=== PATIENT | female | born 1995 | race Caucasian/White ===

== ENCOUNTER 2016-12-15 10:07 | Inpatient (IN) | payer OTHER, SELFPAY ==
[~2016-12-15] VITALS: Ht 160 cm; Wt 105.1 kg
[2016-12-15 10:33] LABS: BASO # 0.1 K/mm3 (0.0-0.2); BASO % 0.6 % (0.0-1.0); EOS # 0.1 K/mm3 (0.0-0.50); EOS % 1.2 % (0.0-3.0); LARGE UNSTAINED CELL # 0.1 K/mm3 (0.0-0.4); LARGE UNSTAINED CELL % 1.4 % (0.0-4.0); LYMPH # 2.5 K/mm3 (1.5-6.5); LYMPH % 23.9 % (24.0-44.0); MEAN CORPUSCULAR HEMOGLOBIN 31.7 pg (27.0-33.0); MEAN CORPUSCULAR HGB CONC 35.3 g/dl (32.0-36.5); MEAN CORPUSCULAR VOLUME 89.6 fl (80.0-96.0); MONO # 0.4 K/mm3 (0.0-0.8); MONO % 3.6 % (0.0-5.0); NEUTROPHILS # 7.2 K/mm3 (1.8-7.7); NEUTROPHILS % 69.3 % (36.0-66.0); PLATELET COUNT, AUTOMATED 391 k/mm3 (150-450); RED CELL DISTRIBUTION WIDTH 12.6 % (11.5-14.5); WHITE BLOOD COUNT 10.4 K/mm3 (4.0-10.0)
[2016-12-15] MEDS ORDERED: CHARCOAL ACTIVATED LIQUID 25 GM/120 ML BTL PO ONE (10:45)
[2016-12-15 10:49] LABS: CONTROL LINE HCG INT CTR LINE PRESENT
[2016-12-15 11:06] LABS: ALBUMIN 4.3 GM/DL (3.2-5.2); ALBUMIN/GLOBULIN RATIO 1.26 (1.00-1.93); ALKALINE PHOSPHATASE 86 U/L (45-117); ALT/SGPT 41 U/L (12-78); ANION GAP 9 MEQ/L (8-16); AST/SGOT 17 U/L (15-37); BILIRUBIN,DIRECT 0.2 MG/DL (0.0-0.2); BILIRUBIN,TOTAL 0.8 MG/DL (0.2-1.0); BLOOD UREA NITROGEN 12 MG/DL (7-18); CALCIUM LEVEL 8.9 MG/DL (8.5-10.1); CARBON DIOXIDE LEVEL 23 MEQ/L (21-32); CHLORIDE LEVEL 108 MEQ/L (98-107); CREATININE FOR GFR 0.97 MG/DL (0.55-1.02); GLOMERULAR FILTRATION RATE > 60.0 (>60); GLUCOSE, FASTING 104 MG/DL (70-105); POTASSIUM SERUM 4.2 MEQ/L (3.5-5.1); SODIUM LEVEL 140 MEQ/L (136-145); TOTAL PROTEIN 7.7 GM/DL (6.4-8.2)
[2016-12-15 13:10] LABS: METHADONE URINE NEGATIVE (NEGATIVE)
--- NOTE | 2016-12-15 16:11 | ECGEPIP ---
Stationary ECG Study [facility] - ED Test Date: 2016-12-15 Pat Name: ESPERANZA JACKSON Department: Room: - Gender: F .Net Architect: ct : 1995 Requested By: Julius Severino Order Number: [id number] Reading MD: Julius Cadet Measurements Intervals [place] Rate: 76 P: 60 RI: 153 QRS: 64 QRSD: 99 T: 40 QT: 349 QTc: 393 Interpretive Statements SINUS RHYTHM WITH MARKED SINUS ARRHYTHMIA Electronically Signed On 12-15-2016 16:10:43 EDT by Julius Cadet
[2016-12-15 18:15] VITALS: BP 140/83
[2016-12-15] MEDS ORDERED: MOM 30ML SUSPENSION UDC PO PRN (19:15)
[2016-12-15] MEDS ORDERED: ACETAMINOPHEN TAB 650MG DOSE (2X325MG) PO PRN (19:15)
[2016-12-15] MEDS ORDERED: MAALOX 30 ML SUSP *UDC PO PRN (19:15)
[2016-12-15] MEDS: traZODone 50 MG TAB PO PRN (21:47)
[2016-12-16 07:06] VITALS: BP 136/76
[2016-12-16] MEDS: MUPIROCIN 2% OINT 22 GM TUBE TOP SCH ×2 (09:00→21:00)
--- NOTE | 2016-12-16 11:46 | HPEPDOC ---
Medical History and Physical Date of Admission Dec 15, 2016 at 17:05 History and Physical PCP: None ATTENDING: Dr. Lawson Lowe HPI: 21yoF admitted to [facility] for unspecified depressive disorder, being medically examined today. Patient was medically stabilized in the emergency department after reporting taking 5, 5 mg melatonin tablets and 10 DayQuil max tablets. She was given activated charcoal, poison control was consulted. Patient was noted to have superficial lacerations to the left forearm. Old lacerations noted bilateral inner upper thighs. No acute medical complaints today. Denies any fevers, chills, weakness, fatigue, AVILEZ, CP, SOB, cough, palpitations, abdominal pain, N/V/D or changes in bowel or bladder habits. PMHx: Anxiety Depression Self-mutilation History of SI Endometriosis PCOS Obesity, BMI 41.0 PSHX: Exploratory laparotomy 05/17 secondary to infertility. Medical hernia repair 10/15 SOCHX: Resides in: [facility] Marital Status: Kids: None Employment: Works as a piercing hvac controls technician Tobacco use: 5-10 per day ETOH: Once per month one drink Illicit Drugs: History of cocaine, mary 2016 IV Drug Use: Denies Tattoos done unprofessionally: 7 FAMHX: Mother: , breast cancer Father: Estranged, substance use Siblings: Alive, ODD, depression, anxiety, bipolar disorder Children: None Unexpected deaths due to medical reasons: None. ROS: As noted in HPI, otherwise 11pt ROS of systems reviewed and remarkable only for LMP unknown PE: GEN: 21 yo F, appears stated age. Well-nourished, well developed. No acute distress. Alert and oriented x 3. Pleasant, interactive. HEENT: Normocephalic, atraumatic. Pupils are equal, round, and reactive to light. Extraocular movements are intact. No nystagmus appreciated. Sclera are nonicteric. Conjunctiva without injection. Nose midline. Nasal turbinates without bogginess. EACs both patent BL. TMs both visualized and lassiter with good cone of light, no bulging or erythema. No facial asymmetry. Moist mucous membranes. Dentition fair. Pharynx pink and moist, no cobblestoning. Neck supple , trachea midline. No lymphadenopathy or thyromegaly appreciated. CHEST: Regular rate and rhythm, +S1, +S2 LUNGS: Clear to auscultation bilaterally. No wheezes, rales, or rhonchi. Breathing appears symmetric and easy. Patient is speaking in full sentences. No accessory muscle use. ABD: Round, soft, non-tender, non-distended. +Bowel sounds throughout. No rebound or guarding. No costovertebral angle tenderness. EXT: Pulses 2+ bilaterally dorsalis pedis and radial. No lower extremity edema appreciated. SKIN: [place], dry, warm. Capillary refill <2sec. No rashes. Superficial lacerations noted bilateral upper thighs, forearms. No drainage. Minimal erythema. NEURO: Alert and oriented x 3. Cranial nerves III-XII are intact. No focal deficits appreciated. EK12/15/16 SINUS RHYTHM WITH MARKED SINUS ARRHYTHMIA A&P: 21yoF admitted to [facility] for unspecified depressive disorder 1. Psych. Plan per Psychiatry. EKG on file. 2. Nicotine dependence. Patch available. 3. Leukocytosis. Possible stress response. Patient is afebrile. Asymptomatic. Recheck CBC. 4. Follow up. No Primary Care Provider. Will attempt to establish PCP on discharge. 5. Substance use. Per psychiatry. 6. History of tattoo done unprofessionally. Patient agrees to HIV/hepatitis screening. 7. Abnormal TSH. Obtain thyroid profile. 8. Superficial lacerations. Apply Bactroban twice a day. Apply dry dressing twice a day as needed. 9. Staff member Sammie AHUMADA present throughout exam. Vital Signs Vital Signs Date Time Temp Pulse Resp B/P (MAP) Pulse Ox O2 Delivery O2 Flow Rate FiO2 12/16/16 07:06 98.4 110 16 136/76 (96) 12/15/16 17:14 96 12/15/16 14:54 Room Air Laboratory Data Labs 24H Laboratory Tests 2 12/15/16 11:46: Urine Amphetamines Screen NEGATIVE, Urine Benzodiazepines Screen NEGATIVE, Urine Opiates Screen NEGATIVE, Urine Methadone Screen NEGATIVE, Urine Barbiturates Screen NEGATIVE, Urine Phencyclidine Screen NEGATIVE, Urine Cocaine Metabolite Screen NEGATIVE, Urine Cannabinoids Screen NEGATIVE 12/15/16 14:23: Salicylates Level < 1.7L, Acetaminophen Level 4.7L Home Medications No Active Prescriptions or Reported Meds Allergies Coded Allergies: Latex (Verified Allergy, Mild, rash, 12/15/16) Dorcas Santiago Dec 16, 2016 11:46
[2016-12-16] MEDS: VENLAFAXINE **XR** 75MG CAPSULE PO SCH (11:47)
[2016-12-16 18:00] VITALS: BP 143/89
[2016-12-16] MEDS: traZODone 50 MG TAB PO PRN (21:32)
[2016-12-17 07:14] VITALS: BP 141/86
[2016-12-17 08:02] LABS: MEAN CORPUSCULAR HEMOGLOBIN 31.1 pg (27.0-33.0); MEAN CORPUSCULAR HGB CONC 34.6 g/dl (32.0-36.5); MEAN CORPUSCULAR VOLUME 89.9 fl (80.0-96.0); RED CELL DISTRIBUTION WIDTH 12.4 % (11.5-14.5); WHITE BLOOD COUNT 6.2 K/mm3 (4.0-10.0)
[2016-12-17 08:31] LABS: T UPTAKE 32 % (30-39); THYROXINE (T4) 10.9 UG/DL (4.5-12.0)
[2016-12-17] MEDS: VENLAFAXINE **XR** 75MG CAPSULE PO SCH (08:47)
[2016-12-17] MEDS: MUPIROCIN 2% OINT 22 GM TUBE TOP SCH ×2 (08:49→21:00)
[2016-12-17] MEDS: LORazepam 1 MG TAB PO PRN (11:23)
--- NOTE | 2016-12-17 13:21 | MHHPE ---
DATE OF ADMISSION: 12/15/2016 CURRENT MEDICATIONS: None. CHIEF COMPLAINT: The patient took an overdose of melatonin tablets and DayQuil tablets. She was also cutting her left arm. After taking the overdose, she realized she did not want to so she called for help. HISTORY OF PRESENT ILLNESS: This is a 21-year-old white female, , living by herself. The patient woke up yesterday with suicidal ideation with plans to end her life. She took the overdose as mentioned above and then had second thoughts. She was brought in by the police department to the emergency room. The patient's stressors recently have been financial. Her boyfriend just broke up with her three days ago. She admits that she has a bad temper with rage attacks. She pushes people away. She starts big fights and gets mean and abusive. The patient blames herself for the ending of the relationship. Recently, she states her appetite is poor, but her weight is stable. Her concentration fluctuates. Self esteem is quite poor. Level of energy is low. Sleep patterns are poor. She has history of depression dating back to age 13 when her mother of cancer. The patient has history of cutting herself on and off ever since. She also has a history of panic attacks which she gets periodically. The patient is not in current mental health treatment. The patient is isolated here in [place] and has no friends or family. The patient works in a [employer]. PAST PSYCHIATRIC HISTORY: The patient was hospitalized December 2013 in [place]. She took an overdose of Prozac and BuSpar. She was given Effexor unknown dosage. She had no side effects on it, but the dose was never increased and it did not seem to be very effective so it was eventually discontinued. The patient was given Prozac as a teenager, also with an adverse outcome where she became depressed and suicidal on it. She has never been on Paxil, Zoloft, Celexa, Lexapro or Wellbutrin. MEDICAL HISTORY: Polycystic ovary syndrome. ALLERGIES TO MEDICATIONS: - PROZAC LEGAL HISTORY: The patient denies. CHEMICAL DEPENDENCY: The patient denies. FAMILY PSYCHIATRIC HISTORY: The patient states that her father is a methamphetamine addict. Her brother has been diagnosed with oppositional defiant disorder. Another brother has been diagnosed with attention deficit hyperactivity disorder (ADHD) and possibly bipolar. Her sister has been diagnosed with depression. SOCIAL HISTORY: The patient born and raised in [place]. After her mother of cancer, her father brought her and the family to [place]. The patient is a high school graduate. 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 The relationship with her three siblings is poor. Her father is a meth addict as mentioned above. The patient got to an [employer] soldier, but the patient just recently got from that relationship. Her recent boyfriend also has been in the [employer]. She came up here to [place] to be with him, arriving in February 2016. She has no other social supports here in this area. MENTAL STATUS EXAMINATION: The patient is alert, oriented and cooperative. Affect is sad. Mood is moderately depressed. She is obese. Self esteem is poor. She is not hearing voices. No paranoia or thought disorder. She has had recent suicidal ideation. She is not homicidal. Insight and judgment appear poor. Memory functions appear intact. She has history of impulsivity and is a potential danger to herself. No signs of daily. Grooming and hygiene appear good. ASSESSMENT: The patient prefers to stay with Effexor because it was recently well tolerated, but to go up to a higher dosage instead of switching to another selective serotonin reuptake inhibitor (SSRI). The patient to be monitored for any signs of daily. DIAGNOSES: Major depression, recurrent. Panic/anxiety disorder. PLAN: Effexor XR 75 mg every morning. No change in trazodone 50 mg at bedtime. 9.39 confirmed. Involve in hospital milieu.
[2016-12-17 18:00] VITALS: BP 142/91
[2016-12-17] MEDS: traZODone 50 MG TAB PO PRN (21:24)
[2016-12-18 06:29] VITALS: BP 126/66
[2016-12-18] MEDS: VENLAFAXINE **XR** 75MG CAPSULE PO SCH (08:04)
[2016-12-18] MEDS: MUPIROCIN 2% OINT 22 GM TUBE TOP SCH ×2 (08:04→20:03)
[2016-12-18 18:00] VITALS: BP 135/77
[2016-12-18] MEDS: LORazepam 1 MG TAB PO PRN (20:03)
--- NOTE | 2016-12-19 04:27 | MHIPN ---
DATE OF SERVICE: 12/17/2016 VITAL SIGNS: Temperature 98.1, pulse 64, respirations 16, blood pressure 141/86. CURRENT MEDICATIONS: - Effexor XR 75 mg every morning - trazodone 50 mg nightly as needed HISTORY OF PRESENT ILLNESS: Patient's appetite is poor. She is not sure exactly why. She did toss and turn last night. She blames this on taking a long nap yesterday. She did take Effexor at night in the past. She is getting it in the morning here. Patient still feels sad and moderately depressed. She did find the trazodone helpful for sleep last night. The patient reports to staff that she feels quite trapped in the hospital. She does not like hospitals since her mother in one 10 years ago. Patient has been out in the [facility], but is not attending groups. She is encouraged to do so. MENTAL STATUS EXAMINATION: Patient is alert and oriented. She is cooperative. Affect is sad. Mood is moderately depressed. She denies currently being suicidal. No signs of psychosis. Insight and judgment are fair. Memory functions appear intact. DIAGNOSIS: Major depression, recurrent. PLAN: Continue psychotropics. Possibly switch Effexor to bedtime dosage if necessary. Patient encouraged to attend therapy program and be more active in the milieu.
[2016-12-19 06:49] VITALS: BP 130/86
[2016-12-19] MEDS: VENLAFAXINE **XR** 75MG CAPSULE PO SCH (08:02)
[2016-12-19] MEDS: MUPIROCIN 2% OINT 22 GM TUBE TOP SCH ×2 (08:03→21:00)
[2016-12-19 18:00] VITALS: BP 139/79
[2016-12-19] MEDS: traZODone 50 MG TAB PO PRN (21:13)
[2016-12-20 06:57] VITALS: BP 146/79
[2016-12-20] MEDS: VENLAFAXINE **XR** 75MG CAPSULE PO SCH (07:33)
[2016-12-20] MEDS: MUPIROCIN 2% OINT 22 GM TUBE TOP SCH ×2 (07:33→21:00)
--- NOTE | 2016-12-20 12:38 | MHIPN ---
DATE OF SERVICE: 12/18/2016 VITAL SIGNS: Temperature 98.2, pulse 62, respiration 18, blood pressure 126/66. CURRENT MEDICATIONS: - Effexor XR 75 mg every morning - Ativan 1 mg every 6 hours as needed - trazodone 50 mg at bedtime as needed HISTORY OF PRESENT ILLNESS: The patient states that her chest felt heavy yesterday after taking the Effexor. She felt that her heart was racing, as well, even though her pulse was normal. She felt a bit dizzy, as well. Then, she got a as needed dose of Ativan, which really helped her mood dramatically. However, later in the evening, her mood plummeted, and she felt quite depressed again without any reason. The patient has been attending groups. She is now wearing her street clothes, which is helping her feel more comfortable. The patient did get her Effexor dose this morning and seemed to tolerate it well initially. Her appetite is fair. She is sleeping better since being on the trazodone. No recent panic attacks. The patient is not getting any visitors. She has no social supports here in the [facility]. MENTAL STATUS EXAMINATION: Affect does appear brighter compared to yesterday. Mood is still mildly to moderately depressed. She is not currently suicidal. No signs of psychosis. Insight and judgment appear fair. Memory functions intact. Grooming and hygiene appear good. DIAGNOSES: Major depression, recurrent. Panic anxiety disorder. PLAN: Continue Effexor. The patient informed that she will have a new psychiatrist as of next week. Depending upon her response to the Effexor, her dosage may either be maintained, increased, or switched to another antidepressant, as clinically indicated.
[2016-12-20 18:00] VITALS: BP 148/88
[2016-12-20] MEDS: LORazepam 1 MG TAB PO PRN (20:28)
[2016-12-20] MEDS: traZODone 50 MG TAB PO PRN (21:38)
[2016-12-21 06:33] VITALS: BP 113/68
[2016-12-21] MEDS: VENLAFAXINE **XR** 75MG CAPSULE PO SCH (08:13)
[2016-12-21] MEDS: MUPIROCIN 2% OINT 22 GM TUBE TOP SCH ×2 (08:57→20:51)
--- NOTE | 2016-12-21 09:35 | MHIPN ---
DATE: 12/19/2016 CHIEF COMPLAINT: Feels better. SUBJECTIVE: She is seen in followup. Indicates she feels better in that she is less stressed, less anxious overall. Feels more optimistic. She says sleep is better. MENTAL STATUS EXAMINATION: Neat, cooperative. No agitation. No psychomotor retardation. She is coherent. Affect is restricted by reactive. Denies any active thoughts of harming herself or anyone else at present. No evidence of any psychosis. Cognition is grossly intact. Judgment is good. Insight is also improved. ASSESSMENT: Major depressive disorder recurrent. PLAN: Continue current care, including the Effexor, which has been increased to 150 mg daily. Encourage participation in activities on the unit. VITAL SIGNS: Blood pressure 130/86, pulse 97, temperature 98.
--- NOTE | 2016-12-21 17:51 | MHIPNPDOC ---
[facility] Progress Note Progress Note DATE OF SERVICE: 12/21/16 HISTORY: Patient was seen and evaluated for her progress in the inpatient unit. She reported that she has been feeling less depressed and anxious with the current treatment. She recently came to know about her ex-boyfriend cheating on her before breakup. She thinks that she is upset about that, but not acting out. She is taking her current medications regularly and able to tolerate the increased dose of Effexor XR. Denies any palpitations, chest pain or discomfort. She reported that she is planning to move out of the [place] and wants to move in with her old friend and demanding immediate discharge. Discussed about need to ensure safety for her. She currently denies any suicidal or homicidal ideations, but remains impulsive and at times unpredictable. SHe is Willing to get outpatient medication management and therapy, but not sure how she will be able to get treatment outside the [facility]. She denies any paranoia or psychotic symptoms VITAL SIGNS: See below. CURRENT MEDICATIONS: See below. MENTAL STATUS EXAMINATION: 21yo female sitting in the chair, looks appropriate for the stated age, overweight, fair hygiene and grooming, normal psychomotor activities, no abnormal movements, superficially cooperative with fair eye contact, speech is normal in rate, rhythm, amount and prosody, mood is irritabl, affect labile & tearful and mood congruent, thought process is logical and goal directed, denies suicidal and homicidal ideations, denies hallucinations, no delusions elicited, aaox3, fair immediate, short term and halfway memory, limited insight, judgement and impulse control DIAGNOSES: 1. Depressive disorder, unspecified. MANAGEMENT PLAN: Continue current management discharge planning in progress. TIME SPENT: 25 minutes. Vital Signs Vital Signs Date Time Temp Pulse Resp B/P (MAP) Pulse Ox O2 Delivery O2 Flow Rate FiO2 12/21/16 06:33 98.0 80 18 113/68 (83) 12/15/16 17:14 96 12/15/16 14:54 Room Air Current Medications Current Medications Lorazepam (Ativan) 1 mg Q6HP PRN PO ANXIETY Last administered on 12/20/16 20: 28; Start 12/15/16 at 19:15; Stop 12/28/16 at 19:14 Trazodone HCl (Desyrel) 50 mg QHSP PRN PO INSOMNIA Last administered on 21:38; Start 12/15/16 at 19:15; Stop 01/14/17 at 19:14 Venlafaxine HCl (Effexor Xr) 150 mg QAM PO Last administered on 12/21/16 08:13; Start 12/19/16 at 09:00; Stop 01/18/17 at 08:59 Allergies Coded Allergies: Latex (Verified Allergy, Mild, rash, 12/15/16) GABI TORO MD Dec 21, 2016 17:51
[2016-12-21 18:00] VITALS: BP 141/86
[2016-12-21] MEDS: traZODone 50 MG TAB PO PRN (20:50)
[2016-12-22 07:42] VITALS: BP 138/74
[2016-12-22] MEDS: MUPIROCIN 2% OINT 22 GM TUBE TOP SCH (08:03)
[2016-12-22] MEDS: VENLAFAXINE **XR** 75MG CAPSULE PO SCH (08:05)
[2016-12-22] MEDS ORDERED: VENL75CA2 PO ×2 (14:41→14:51)
[2016-12-22] MEDS ORDERED: TRAZO50TA PO ×2 (14:41→14:51)
--- NOTE | 2016-12-22 15:04 | MHDSPDOC ---
[facility] Discharge Summary Discharge Summary DATE OF ADMISSION: Dec 15, 2016 at 17:05 on 9.39 DATE OF DISCHARGE: 12/22/16 DISCHARGE DIAGNOSES: 1. Major depression, moderate in severity, with no psychotic symptoms . 2.. Anxiety disorder, unspecified. REASON FOR ADMISSION: Suicidal attempt with overdose on DayQuil and melatonin unknown quantity and milligrams From the H&P note: "This is a 21-year-old white female, , living by herself. The patient woke up yesterday with suicidal ideation with plans to end her life. She took the overdose as mentioned above and then had second thoughts. She was brought in by the police department to the emergency room. The patient's stressors recently have been financial. Her boyfriend just broke up with her three days ago. She admits that she has a bad temper with rage attacks. She pushes people away. She starts big fights and gets mean and abusive. The patient blames herself for the ending of the relationship. Recently, she states her appetite is poor, but her weight is stable. Her concentration fluctuates. Self esteem is quite poor. Level of energy is low. Sleep patterns are poor. She has history of depression dating back to age 13 when her mother of cancer. The patient has history of cutting herself on and off ever since. She also has a history of panic attacks which she gets periodically. The patient is not in current mental health treatment. The patient is isolated here in [place] and has no friends or family. The patient works in a [employer]. PAST PSYCHIATRIC HISTORY: The patient was hospitalized December 2013 in [place]. She took an overdose of Prozac and BuSpar. She was given Effexor unknown dosage. She had no side effects on it, but the dose was never increased and it did not seem to be very effective so it was eventually discontinued. The patient was given Prozac as a teenager, also with an adverse outcome where she became depressed and suicidal on it. She has never been on Paxil, Zoloft, Celexa, Lexapro or Wellbutrin. MEDICAL HISTORY: Polycystic ovary syndrome. ALLERGIES TO MEDICATIONS: - PROZAC LEGAL HISTORY: The patient denies. CHEMICAL DEPENDENCY: The patient denies. FAMILY PSYCHIATRIC HISTORY: The patient states that her father is a methamphetamine addict. Her brother has been diagnosed with oppositional defiant disorder. Another brother has been diagnosed with attention deficit hyperactivity disorder (ADHD) and possibly bipolar. Her sister has been diagnosed with depression." Physical Exam: [facility] HOSPITAL COURSE: Patient was admitted to inpatient psychiatry unit under 9.39, and her medications were resumed with Effexor and trazodone. Initially patient was depressed and crying most of the time and had limited interaction with anyone in the unit. She was also having suicidal ideations and feeling depressed most of the day. Her medications were titrated and she was also encouraged to participate in the unit activities including group therapy and provided with individual therapy. Patient responded well to the treatment and she was sleeping better and started interacting with anyone in the unit, patient remained impulsive at times, but continued to deny any suicidal or homicidal ideations discussed about some of the dialectical behavioral therapy concepts and increased to use them in her life. She was compliant with medications, and she denied any side effects with the medications. Her heart rate was increased bit Effexor dose increasing, but patient responded without any symptoms of palpitation or chest pain. Patient did not need any restraints, During her treatment over here MENTAL STATUS EXAMINATION ON DISCHARGE: 21yo female sitting in the chair, looks appropriate for the stated age, fair hygiene and grooming, normal psychomotor activities, no abnormal movements, cooperative with fair eye contact, speech is normal in rate, rhythm, amount and prosody, mood is 'fine', affect full and mood congruent, thought process is logical and goal directed, denies suicidal and homicidal ideations, denies hallucinations, no delusions elicited, aaox3, fair immediate, short term and chcf memory, limited insight, fair judgement and impulse control MEDICATIONS ON DISCHARGE: Effexor XR 150 QAM Trazodone 50mg HS PRN for sleep PLAN/FOLLOWUP ARRANGEMENTS: Patient to be discharged with her friend and she is planning to move to [place] and follow-up outpatient on the previously arranged appointments. The amount of time spent in the coordination of care for this patient was approximately 30 minutes. Vital Signs/I&Os Vital Signs Date Time Temp Pulse Resp B/P (MAP) Pulse Ox O2 Delivery O2 Flow Rate FiO2 12/22/16 07:42 98.7 69 16 138/74 (95) Medications Scheduled Venlafaxine HCl (Venlafaxine HCl ER) 75 Mg Cap, 150 MG PO QAM for depression for 30 Days, #60 Scheduled PRN Trazodone HCl (Trazodone HCl) 50 Mg Tab, 50 MG PO QHSP PRN for INSOMNIA for 30 Days, #30 Allergies Coded Allergies: Latex (Verified Allergy, Mild, rash, 12/15/16) GABI TORO MD Dec 22, 2016 15:04
== END 2016-12-22 15:55 | disposition home or self-care (01) | DRG 885 ==
LOC: M ED 10:07 → M ED INP 17:05 → M PSY 18:04
PROVIDERS: ADMIT Psychiatry & Neurology Psychiatry; ATTEND Psychiatry & Neurology Psychiatry
DX: F32.1 Major depressive disorder, single episode, moderate (principal); Z68.41 Body mass index [BMI] 40.0-44.9, adult; F41.0 Panic disorder [episodic paroxysmal anxiety]; E66.1 Drug-induced obesity; T38.80 Poisoning by, adverse effect of and underdosing of unspecified hormones and synthetic substitutes; T48.3X2A Poisoning by antitussives, intentional self-harm, initial encounter; Y92.009 Unspecified place in unspecified non-institutional (private) residence as the place of occurrence of the external cause; E28.2 Polycystic ovarian syndrome; N80.9 Endometriosis, unspecified; F17.210 Nicotine dependence, cigarettes, uncomplicated; S51.812A Laceration without foreign body of left forearm, initial encounter; X78.9XXA Intentional self-harm by unspecified sharp object, initial encounter; Y99.8 Other external cause status; Z63.0 Problems in relationship with spouse or partner; Z81.3 Family history of other psychoactive substance abuse and dependence; Z81.8 Family history of other mental and behavioral disorders; Z91.040 Latex allergy status